=== PATIENT | male | born 1995 | race Caucasian/White ===

== ENCOUNTER 2018-12-09 12:31 | Day surgery (SDC) | payer OTHER ==
[~2018-12-09 12:31] MED LIST: Buffered Lidocaine 1% SYRIN* 1 ML/SYRINGE INTRADERM ONE; Dexamethasone TAB* 4 MG ONE; Dexamethasone TAB* 4 MG PO ONE; DiMENhydriNATE IV* 50 MG/ML VIAL IV PUSH PRN; Famotidine IV* 10 MG/ML 2 ML (20 mg) IV ONE; Famotidine IV* 10 MG/ML 2 ML (20 mg) ONE; Lactated Ringers 1000 ML Bag* 1,000 ML IV SCH; Morphine 4 MG/ML VIAL (1 ml) 4 MG/ML VIAL IV PRN; Naloxone* 0.4 MG/ML 1 ML VIAL IV PRN; Ondansetron ODT TAB* 4 MG ONE; Ondansetron TAB* 4 MG PO ONE; PROCHLORPERAZINE INJ 5 MG/ML 2 ML VIAL IV PRN; fentaNYL* 50 MCG/ML 2 ML VIAL (100 MCG VIAL) IV PRN; oxyCODONE/Acetamin 5/325 MG* TAB PO PRN
[2018-12-09] MEDS ORDERED: ceFAZolin 2 GM PREMIX in ORs 2 GM/50 ML BAG IVPB ONE (12:48)
[2018-12-09] MEDS ORDERED: Scopolamine 1.5 mg* PATCH ONE (13:23)
[2018-12-09] MEDS ORDERED: Midazolam* 1 MG/ML 5 ML VIAL (5 MG) ONE (13:30)
[2018-12-09] MEDS ORDERED: fentaNYL* 50 MCG/ML 2 ML VIAL (100 MCG VIAL) ONE (13:30)
[2018-12-09] MEDS ORDERED: ROPIVACAINE 5 MG/ML 30 ML BTL (0.5%) ONE (14:48)
[2018-12-09] MEDS ORDERED: Heparin VIAL(*) 10000 UNITS/ML VIAL (TEN THOUSAND) ONE ×2 (15:53→15:57)
[2018-12-09] MEDS ORDERED: PROCHLORPERAZINE INJ 5 MG/ML 2 ML VIAL ONE (16:42)
[2018-12-09] MEDS ORDERED: Propofol* 10 MG/ML 20 ML BTL ONE (16:42)
[2018-12-09] MEDS ORDERED: Ketorolac INJ* 30 MG/ML 1 ML VIAL ONE (16:42)
[2018-12-09] MEDS ORDERED: Phenylephrine INJ* 10 MG/ML 1 ML VIAL (10 MG) ONE (16:42)
[2018-12-09] MEDS ORDERED: Lidocaine 2% PF * 5 ML VIAL ONE (16:42)
[2018-12-09] MEDS ORDERED: HYDROmorphone INJ* 0.5 MG/0.5 ML SYRINGE ONE (16:46)
[2018-12-09] MEDS ORDERED: Lidocaine 1% MPF wEPI 200,000* 30 ML SDV ONE (17:22)
[2018-12-09 19:01] VITALS: BP 138/68
--- NOTE | 2018-12-09 23:10 | OP ---
DATE OF OPERATION: 12/09/18 - [facility] DATE OF : 89 SURGEON: Igor Gonzales MD. ADVERTISING ASSOCIATE: ANDREW Balderrama. An industrial hire sales assistant was needed for the entirety of the procedure to aid in positioning of the arm and retraction. ANESTHESIOLOGIST: Dr. Smith. ANESTHESIA: General. PRE-OP DIAGNOSIS: Penetrating hockey blade wound to the right distal third of the forearm with absent FPL function and likely palmaris longus and flexor carpi radialis laceration, some potential radial artery laceration. POST-OP DIAGNOSES: 1. Right flexor carpi radialis laceration. 2. Right palmaris longus laceration. 3. Right median nerve partial laceration through the epineurium. 4. Right muscular transection of the flexor pollicis longus. 5. Right radial artery laceration. OPERATIVE PROCEDURES: 1. Exploration of penetrating wound, right forearm. 2. Transfer of the middle finger flexor digitorum superficialis to flexor pollicis longus tendon at the level of the wrist and distal forearm. 3. Repair of right flexor carpi radialis tendon in the distal forearm. 4. Repair of right palmaris longus tendon in the distal forearm. 5. Wrapping of the median nerve epineurial laceration in the distal forearm. 6. Right radial artery repair in the distal forearm. ESTIMATED BLOOD LOSS: 50 mL. COMPLICATIONS: None. FINDINGS: See above and below. INDICATIONS: Willi is 23. 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 He was involved in a serious hockey incident where he had laceration from a hockey blade in the distal third of the forearm near the junction of the mid to distal third. His biggest finding was a complete absence of FPL function. Neurologically, the thenar muscles fired nicely. The sensation was completely normal in the median and ulnar nerve distributions on the fingers. I had talked to him about addressing the FPL laceration. I told him that given the fact the laceration is at the junction of the mid to distal third, that this likely would involve a tendon transfer to restore the function. Certainly, if there was enough tendon that I could repair, I definitely would. However, I thought that was probably unlikely. I told them, he and his parents, preoperatively that if I did need to do a tendon transfer, I would take a flexor digitorum superficialis, likely from the middle finger. The other option would be from the ring finger; however, he is a size worker and he needs to generate a lot of power run lead and so I thought that he may do better with a transfer of the middle finger FDS as opposed to the ring finger. DESCRIPTION OF PROCEDURE: Willi was seen in the preoperative holding area. The correct site, side, and procedure were identified. We came back to the operating room where the arm was prepped and draped in usual fashion. A time- out was performed. We had removed his stitches prior to prepping and draping. Betadine was used. After time-out was performed, the arm was exsanguinated with the Esmarch and the tourniquet inflated to 250 mmHg. I reopened his prior incision, and then extended that in a lazy-S fashion distally along the FCR tendon sheath and proximally; it was brought back radially so that I had nice exposure in the area. The full-thickness flaps were raised off the fascia and care was taken not to injure the palmar cutaneous branch in the median nerve. The flaps were sewn back. The lacerated FCR and palmaris longus tendons were immediately identifiable. I debrided these back in preparation for future repair and after I had prepared the proximal and distal edges, these were set aside for later repair. I next turned my attention to the median nerve. It was easily seen, then it was lacerated right deep to where the palmaris longus had been lacerated; however, it was just the epineurium that was lacerated and it did not look like the laceration went any deeper consistent with his preoperative examination, but there was a sizeable jagged laceration in the epineurium. I then examined the FPL. It was a complete transection right through the muscle. It occurred just at the last remnant of tendon and so I could find some tendon in the distal portion of the muscle, but not in the proximal portion of the muscle. I could not find any tendon. I also noted a radial artery laceration. Once a full assessment had been made of the injuries, I decided that I first wanted to take care of the FPL. I dissected down towards the carpal tunnel to see if I could obtain enough FDS tendon without having to make a separate incision in the palm for the transfer; however, doing this would have caused me to incise the tendon where it would have been underneath the carpal tunnel and I did not want to do that, so I made an incision in his mid palmar crease and located the FDS tendon there. This was just proximal to the A1 karen. Tendon was pulled up out of the wound with the finger in full extension and incised. I did double-check to make sure the FDP tendon was in continuity and working prior to incising the FDS tendon. I did confirm this in both the proximal and distal wounds. The FDS tendon was then pulled back up into the proximal wound. It was rather deep to the median nerve and I then performed a Pulvertaft weave just proximal to the wrist. After the first weave, I set my attention and secured it with a [id number] 2-0 Ethibond suture. The transfer was in such tension that the IP joint flexed with wrist extension down to near full flexion and then fully extended with wrist flexion. The weave was secured with multiple 2-0 Ethibond sutures until I felt that it was very secured. The edges of the tendon proximally and distally were beveled off and sewn down so that they had a nice flush edge. I then turned my attention to the median nerve. I decided that the best thing to do was to simply place a nerve wrap around it and so I selected an Axoguard 7 x 40 mm nerve protector. This was wrapped around the median nerve and secured proximally and distally and once in the middle with a simple 6-0 Prolene suture. I confirmed that the wrap was not sewn to the nerve. After I had addressed the nerve, I went ahead and fixed first my flexor carpi radialis with a 6-strand core suture using the 2-0 Ethibond suture. This came together nicely with the wrist in about 20 to 30 degrees of flexion. I then repaired the palmaris longus with a 4-strand 2-0 Ethibond core suture. These were both very nice repairs. Lastly, I debrided back the periarterial fluid tissue around the edge into the radial artery. I let down the tourniquet. Both sides were pulsating, but not bleeding. I did decide that since we were here and we had an opportunity to repair the artery directly, that we should. I therefore placed a vascular clamp on either side of the repair and brought the edges of the artery in apposition. I trimmed back the artery a couple of millimeters on either end until I had a nice lumen. I used my dilators to express clot from both the distal and proximal edges. I then let off the clamps and I had good pulsatile bleeding proximally and distally. I irrigated out the ends of the artery with saline. I then performed a standard arterial repair using 8-0 nylon suture. I first placed a suture at the 3 o'clock and then at the 9 o'clock position. I then placed additional sutures on the palmar aspect of the artery. I then rotated the clamps and then in like fashion, placed multiple simple interrupted 8-0 nylon sutures to sew the dorsum closed. I then let off the clamps and let my artery rest for a couple of minutes underneath some saline-soaked gauze with some lidocaine with epinephrine. I removed the gauze and there was pulsatile arterial bleeding coming to one portion of the anastomosis. I therefore replaced the clamps and placed two additional 8-0 nylon sutures in that area. I then let my artery rest again under similar gauze soaked with lidocaine with epinephrine. When I removed the gauze, I had a nice pulsatile radial artery without any bleeding. I checked for flow-through with my dilator forceps and I had good flow-through through the anastomosis. I decided this was good and no further monitoring would be needed since the hand was already well perfused with the ulnar artery. At this point, I irrigated out the wound copiously. The wound was closed with 3 -0 nylon suture. A 0.5% ropivacaine was infiltrated all around the operative areas. The palm wound was closed with 4-0 nylon suture. The wounds were dressed with Xeroform, 4x4, sterile Webril, and a thumb spica splint up to the tip of the thumb was applied with the MP joint at 30 degrees of flexion and the IP joint at 30 degrees of flexion. The tourniquet was already deflated, but we did have a disparity in the needle counts where we actually had 1 extra needle than they had counted and so we took the mini C-arm x-ray. We could not see any needles in the wound. The patient was then woken up and taken to the recovery room in stable condition. [id number] #: [id number]
== END 2018-12-09 19:01 | disposition home or self-care (01) ==
LOC: OREAST 12:31
PROVIDERS: ATTEND Orthopaedic Surgery Hand Surgery
DX: S61.511A Laceration without foreign body of right wrist, initial encounter (principal); W26.8XXA Contact with other sharp object(s), not elsewhere classified, initial encounter; Y93.69 Activity, other involving other sports and athletics played as a team or group; Z79.899 Other long term (current) drug therapy
CPT/HCPCS: A9270-GY; C1763; J0690; J0780; J1170; J1642; J1644; J1885; J2001; J2250; J2704; J2795; J3010; J8540